=== PATIENT | male | born 1945 | race Caucasian/White ===

== ENCOUNTER 2016-08-20 09:56 | Inpatient (IN) | payer OTHER ==
[~2016-08-20] VITALS: Ht 182.9 cm; Wt 109.4 kg
--- NOTE | ~2016-08-20 | EKG ---
[address] [address] ELECTROCARDIOGRAM REPORT Name: DANIKA ROLDAN Room #: 200-I [facility] IN .R.#: [id number] Admission: 08/20/16 Attend Phys: Waylon Oropeza MD Discharge: 08/22/16 Date of : 47 Report #: [id number] THIS REPORT FOR: //name// [facility] Test Date: 2016-08-20 Test Time: 13:01:15 Pat Name: DANIKA ROLDAN Department: Room: 200 I Gender: M Oncology Technician: taz : 1945 Requested By: Lamar Daley Order Number: [id number] MD: Jose Mariano Measurements Intervals Golden Rate: 61 P: 41 CA: 166 QRS: 42 QRSD: 96 T: 65 QT: 424 QTc: 427 Interpretive Statements Sinus rhythm No previous ECG available for comparison Electronically Signed On 08-22-2016 13:16:40 CDT by Jose Mariano [email or web address] <ELECTRONICALLY SIGNED> By: Jose Mariano MD 08/22/16 1316 1301 130 Jose Mariano MD /CLEO
--- NOTE | ~2016-08-20 | HC ---
[facility] [place] [address] CONSULTATION Name: DANIKA ROLDAN Room #: 200-I ADM IN ..#: [id number] Admission: 08/20/16 Attend Phys: Caleb Vazquez MD Discharge: Date of : 47 Report #: [id number] THIS REPORT FOR: //name// CC: FAM unknown Caleb Vazquez DATE OF SERVICE: 08/20/2016 REASON FOR CONSULTATION: Non-ST segment myocardial infarction. HISTORY OF PRESENT ILLNESS: This is a very pleasant 70-year-old gentleman without prior cardiac history presented to [facility] yesterday for a sharp, severe discomfort. He was subsequently admitted and enzymes were abnormal. Apparently, he had several bouts of this discomfort overnight with one causing him to pass out from the severe discomfort. He was seen in the morning when enzymes were positive and transferred for further assessment. Upon questioning, the patient denied any prior history of symptoms, but upon questioning the family, they described him having progressive shortness of breath with daily walks and more fatigability. Since the nitro paste was placed and IV heparin initiated, he has had no longer symptoms. He denied any associated shortness of breath, diaphoresis, nausea, vomiting at that time. Did not have any significant limitations to activity prior to this presentation. PAST MEDICAL HISTORY: Significant for: 1. Dyslipidemia. 2. Hypertension, well controlled. 3. PTSD. PAST SURGICAL HISTORY: Significant for a malignant melanoma removed x 2. SOCIAL HISTORY: The patient is . He is a former smoker, having quit 30 years ago. Does not follow particular exercise regimen or dietary restriction. FAMILY HISTORY: Significant for vascular disease with father having an aneurysm and mother having strokes but no myocardial infarction per se. Diabetes run in the family. ELECTROCARDIOGRAM: Normal sinus rhythm, nonspecific ST-T wave changes. LABORATORY DATA: Demonstrates a troponin of 9.76 from a lower troponin at [place]. Remainder of the laboratories are identified from the [facility] transfer data. REVIEW OF SYSTEMS: Except for symptoms previously mentioned and those commensurate with comorbid states, his 10-point review of system is negative. [facility] [address] [place] [address] CONSULTATION Name: DANIKA ROLDAN Room #: 200-I [facility] IN M.R.#: [id number] Admission: 08/20/16 Attend Phys: Caleb Vazquez MD Discharge: Date of : 47 Report #: [id number] RADIOLOGY: Chest x-ray failed to demonstrate any acute processes. PHYSICAL EXAMINATION: GENERAL: Well-developed, well-nourished white male, resting comfortably in no acute distress. VITAL SIGNS: Noted and reviewed in the chart. HEENT: Normocephalic, atraumatic. Pupils are equal, round, reactive to light and accommodation. Extraocular muscles are intact. Sclerae and conjunctivae are anicteric. NECK: JVD is normal. Carotid upstrokes are bilaterally symmetrical. No bruits are heard. No thyromegaly. No lymphadenopathy. LUNGS: Clear to auscultation. No wheezes, rhonchi or crackles. No CVA tenderness. CARDIAC: Demonstrates a regular rhythm. Normal first and second heart sounds. No ventricular or atrial gallops, no rubs noted. No murmurs. No lifts or heaves, PMI normal. ABDOMEN: Soft, nontender, nondistended. Normal bowel sounds. EXTREMITIES: Without cyanosis, clubbing or edema. Distal pulses are intact. DTR symmetrical. NEUROLOGIC: Cranial nerves 2-12 are grossly normal and symmetrical. PSYCHIATRIC: Alert, oriented with normal affect. SKIN: Warm and dry. IMPRESSION AND PLAN: 1. Chest pains with risk factors and elevated troponin consistent with a non-ST segment myocardial infarction. I have initiated the IV heparin. He is on nitro paste and aspirin. We will discuss options and in view of presentation and elevated troponins, we will proceed with cardiac catheterization. The risks, complications and alternatives of cath angioplasty, conscious sedation discussed with the patient. He voices understanding and wishes to proceed. 2. Hypertension, apparently seems to be well controlled and we will continue to monitor. We did discuss nonpharmacologic treatment of hypertension. 3. Dyslipidemia. Discussed the [employer] step 1 diet with him and we will continue with proceeding with more of this after we deal with the acute problems. <ELECTRONICALLY SIGNED> By: Jaden Wagner MD 08/20/16 2042 1636 180 Jaden Wagner MD /nt
--- NOTE | ~2016-08-20 | CATHLAB ---
[facility] [address] [employer] [place] [address] INVASIVE PROCEDURE REPORT Name: DANIKA ROLDAN Room #: 200-I [facility] IN [facility]#: [id number] Admission: 08/20/16 Attend Phys: Sergio Shay Discharge: Date of : 47 Date of Service: 08/21/16 0710 Report #: [id number] THIS REPORT FOR: //name// CC: FAM unknown Waylon Oropeza DATE OF SERVICE: 08/20/2016 PROCEDURES: 1. Left heart catheterization. 2. Selective left and right coronary angiography. 3. Left ventriculography and measurement of left ventricular end diastolic pressures. 4. Supervision of conscious sedation. LACE PINNER: Jaden Wagner M.D. INDICATIONS: A 70-year-old male with a non-ST segment elevation myocardial infarction. BRIEF DESCRIPTION OF PROCEDURE: After informed consent was obtained, the patient was brought to the cardiac catheterization laboratory in stable condition. The patient's right groin was prepped and draped in the usual sterile manner after which lidocaine was then instilled. Utilizing a modified Seldinger technique, the right femoral artery was then accessed. Under fluoroscopic visualization using selective coronary catheters, the right and left coronaries were opacified and visualized. The left ventriculogram was likewise imaged per standard protocol with EDP being measured. Subsequent to this, the sheath was removed, hemostasis achieved. The patient tolerated the procedure well. There were no complications. FINDINGS: 1. RHYTHM: The patient's rhythm was sinus throughout the entire procedure. 2. HEMODYNAMICS: A. Aortic pressure 140/79. B. Left ventricular end diastolic pressure is 30-35. 3. FLUOROSCOPY: Under fluoroscopic visualization, there was extensive calcific plaquing along the epicardial coronary arteries. No significant plaquing on the valvular intramyocardial structures of the heart. ANGIOGRAPHY: This is a right coronary dominant system. A. Left main is of normal origin and caliber, bifurcates into left anterior descending and left circumflex is free of high-grade disease. B. Left anterior descending is a moderate caliber vessel, which courses in the anterior interventricular sulcus giving rise to first septal and diagonal branch and distal portion of the mid LAD. The vessel then tapers rapidly to 50% and [facility] [address] [place] [address] INVASIVE PROCEDURE REPORT Name: DANIKA ROLDAN Room #: 200-I [facility] IN ..#: [id number] Admission: 08/20/16 Attend Phys: Sergio Shay Discharge: Date of : 47 Date of Service: 08/21/16 0710 Report #: [id number] continues with irregularities of 50-60% until the apex where a 90% lesion is noted prior to the terminal bifurcation of the vessel in inferior posterior wall. The vessel at this location is less than 1 mm in diameter. C. Left circumflex is a small, less than 1.5 mm vessel, which courses in the lateral wall, giving rise to 2 lateral wall branches. In its proximal course is a 90% lesion present. D. Right coronary artery is a moderate to large caliber vessel, which has luminal irregularities of 50% or less in its proximal course. It then proceeds posteriorly giving rise to posterior descending artery with a 50% proximal lesion. It continues in the posterior wall branch and the posterolateral branch with quite significant tortuosity and sequential 70% lesions in a very tortuous hairpin like portion of the vessel. IMPRESSION: 1. Coronary artery disease, significant, 3 vessel with diminutive coronary arteries. 2. Normal left ventricular cavity size with apical akinesis. 3. Abnormal hemodynamics with elevated left ventricular end-diastolic pressures. <ELECTRONICALLY SIGNED> By: Jaden Wagner MD 08/22/16 0949 0710 1238 Jaden Wagner MD /nt
[2016-08-20 11:40] VITALS: BP 163/86
[2016-08-20 17:00] VITALS: BP 171/93
[2016-08-20 21:15] VITALS: BP 162/89
[2016-08-20 21:30] VITALS: BP 152/79
[2016-08-20 21:45] VITALS: BP 140/78
[2016-08-20 22:00] VITALS: BP 155/84; BP 162/89
[2016-08-21] VITALS (9 sets, daily range): BP systolic 134–173; BP diastolic 58–89
[2016-08-21 03:59] LABS: ALBUMIN 2.9 g/dL (3.4-5.0); ALKALINE PHOSPHATASE 81 U/L (46-116); ANION GAP 11 mmol/L (7-16); BUN 13 mg/dL (7-18); CALCIUM 8.5 mg/dL (8.5-10.1); CHLORIDE 107 mmol/L (98-107); CHOLESTEROL 148 mg/dL (<200); CO2 24 mmol/L (21-32); CREATININE 0.9 mg/dL (0.6-1.3); GLUCOSE 114 mg/dL (70-99); HDL CHOLESTEROL 29 mg/dL (>40); LDL CHOLESTEROL 88 mg/dL (<100); MAGNESIUM 2.1 mg/dL (1.8-2.4); POTASSIUM 3.7 mmol/L (3.5-5.1); SGOT 53 U/L (15-37); SGPT 40 U/L (30-65); SODIUM 142 mmol/L (136-145); TC:HDL 5.1 Ratio (Not establshd); TOTAL BILIRUBIN 0.8 mg/dL (<0.1-1.0); TOTAL PROTEIN 6.6 g/dL (6.4-8.2); TRIGLYCERIDE 157 mg/dL (<150); VLDL 31 mg/dL (<40)
[2016-08-21 04:23] LABS: ABSOLUTE NEUTROPHILS 4.3 thou/uL (1.4-8.2); BASOPHILS 0.5 % (0.0-2.0); EOSINOPHILS 1.5 % (0.0-3.0); HEMATOCRIT 39.2 % (42.0-52.0); HEMOGLOBIN 13.1 gm/dL (14.0-18.0); MCH 29.3 pg (26.0-34.0); MCHC 33.4 g/dL (28.0-37.0); MCV 87.7 fL (80.0-100.0); MONOCYTES 10.8 % (1.0-8.0); PLATELET COUNT 190 thou/uL (150-400); POLYS 65.2 % (36.0-66.0); RBC 4.47 mil/uL (4.50-6.00); RDW 14.3 % (10.5-14.5); WBC 6.6 thou/uL (4.0-11.0)
[2016-08-21 04:33] LABS: MANUAL DIFF NO
[2016-08-21] MEDS ORDERED: PLAVIX 75 MG TA75 M1 PO (14:14)
[2016-08-21] MEDS ORDERED: LIPITOR 20 MG T20 M1 PO (14:14)
[2016-08-21] MEDS ORDERED: ASPIRIN325 PO (14:14)
[2016-08-21] MEDS ORDERED: PROTONIX40 M1 PO (14:14)
[2016-08-21] MEDS ORDERED: TOPROL XL25 MG PO (14:14)
[2016-08-21] MEDS ORDERED: NITROSTAT0.4 MG SUBLING (14:14)
[2016-08-22 05:00] VITALS: BP 155/81
[2016-08-22 07:20] VITALS: BP 150/87
[2016-08-22 07:47] VITALS: BP 155/81
[2016-08-22 07:56] VITALS: BP 155/81
== END 2016-08-22 08:02 | disposition home or self-care (01) | DRG 281 ==
LOC: 2N 09:56
PROVIDERS: Nurse Practitioner
PROC: 4A023N7 Measurement of Cardiac Sampling and Pressure, Left Heart, Percutaneous Approach (ICD-10-PCS; principal; 2016-08-20)
PROC: B2111ZZ Fluoroscopy of Multiple Coronary Arteries using Low Osmolar Contrast (ICD-10-PCS; principal; 2016-08-20)
PROC: B2151ZZ Fluoroscopy of Left Heart using Low Osmolar Contrast (ICD-10-PCS; principal; 2016-08-20)
DX: I21.4 Non-ST elevation (NSTEMI) myocardial infarction (principal); E44.1 Mild protein-calorie malnutrition; F43.10 Post-traumatic stress disorder, unspecified; E78.5 Hyperlipidemia, unspecified; I10 Essential (primary) hypertension; F41.9 Anxiety disorder, unspecified; M19.90 Unspecified osteoarthritis, unspecified site; Z68.32 Body mass index [BMI] 32.0-32.9, adult; Z87.891 Personal history of nicotine dependence; Z79.82 Long term (current) use of aspirin; Z79.899 Other long term (current) drug therapy; Z82.49 Family history of ischemic heart disease and other diseases of the circulatory system; Z83.3 Family history of diabetes mellitus; Z82.3 Family history of stroke
CPT/HCPCS: 10081